=== PATIENT | male | born 1960 | race Caucasian/White ===

== ENCOUNTER 2021-11-24 07:34 | Outpatient (REF) | payer OTHER, SELFPAY ==
[2021-11-24 11:25] LABS: MANUAL DIFF FLAG NO
[2021-11-24 11:37] LABS: Basophils Percent Auto 0.5 % (0-2); Eosinophils Absolute Auto 0.2 X10*3/uL (0.0-0.4); Eosinophils Percent Auto 3.3 % (0-4); Hematocrit 49.4 % (42.0-52.0); Hemoglobin 16.6 g/dl (14.0-18.0); Imm Gran Abs Auto 0.02 X10*3/uL (0.00-0.03); Imm Gran Pct Auto 0.3 % (0.0-0.4); Lymphocytes Absolute Auto 1.1 X10*3/uL (1.2-4.9); Lymphocytes Percent Auto 18.3 % (20-40); Mean Corpuscular HGB Conc 33.6 g/dl (31.0-36.0); Mean Corpuscular Hemoglobin 30.7 pg (27.0-33.0); Mean Corpuscular Volume 91.5 fL (80.0-98.0); Mean Platelet Volume 10.8 fL (9.4-12.4); Monocytes Absolute Auto 0.8 X10*3/uL (0.1-1.2); Monocytes Percent Auto 13.5 % (2-11); Neutrophils Absolute Auto 3.9 x10*3/uL (2.0-8.3); Neutrophils Percent Auto 64.1 % (45-73); Platelet Count 245 X10*3/uL (160-400)
[2021-11-24 11:47] LABS: Appearance Urine HAZY; Color Urine YELLOW; Glucose Urine UA NEG (NEG); Leukocyte Esterase Urine NEG (NEG); Nitrite Urine NEG (NEG); Specific Gravity - Urine 1.025 (1.005-1.025); Urine Blood NEG (NEG); Urine Ketones NEG (NEG); Urine Protein NEG (NEG-TRACE)
[2021-11-24 11:49] LABS: Alanine Aminotransferase 37 U/L (0-40); Alkaline Phosphatase 77 U/L (39-117); Anion Gap 10 (12-20); Aspartate Amino Transferase 22 U/L (5-37); Bilirubin Total 0.5 mg/dL (0.0-1.0); Blood Urea Nitrogen 13 mg/dL (9-16); Calcium 9.3 mg/dL (8.4-10.2); Carbon Dioxide 28 mmol/L (22-29); Chloride 105 mmol/L (96-108); Cholesterol 238 mg/dL; Estimated Glomerular Filt Rate > 60; Glucose Fasting 113 mg/dL (60-99); HDL Cholesterol 45 mg/dL; LDL Cholesterol Calculated 176 mg/dl; Potassium 4.3 mmol/L (3.3-5.1); Sodium 139 mmol/L (135-145); Total Protein 6.6 g/dL (6.5-8.0); Triglycerides 85 mg/dL
[2021-11-24 12:52] LABS: Prostate Specific Antigen 5.92 ng/mL (<0.05-4.0)
== END 2021-11-24 07:35 | disposition home or self-care (01) ==
LOC: HO.HMGCLDS 07:34
PROVIDERS: Visit Provider Family Medicine
DX: Z12.5 Encounter for screening for malignant neoplasm of prostate (principal); R00.0 Tachycardia, unspecified; R53.83 Other fatigue; R30.0 Dysuria; Z82.49 Family history of ischemic heart disease and other diseases of the circulatory system
CPT/HCPCS: 36415; 80053; 80061; 81003; 84153; 85025

== ENCOUNTER 2022-02-06 08:41 | Outpatient (REF) | payer OTHER, SELFPAY ==
[2022-02-06 12:20] LABS: Alanine Aminotransferase 34 U/L (0-40)
== END 2022-02-06 08:42 | disposition home or self-care (01) ==
LOC: HO.HMGCLDS 08:41
PROVIDERS: PCP Family Medicine; Visit Provider Family Medicine
DX: E78.00 Pure hypercholesterolemia, unspecified (principal); Z79.899 Other long term (current) drug therapy
CPT/HCPCS: 36415; 82550; 84460

== ENCOUNTER → 2022-05-12 14:18 | Outpatient (BNVA) | payer SELFPAY | PROVIDERS: PCP Family Medicine; Visit Provider Urology | DX: N52.9 Male erectile dysfunction, unspecified (principal); N40.0 Benign prostatic hyperplasia without lower urinary tract symptoms; R97.20 Elevated prostate specific antigen [PSA] | CPT/HCPCS: 99202 ==

== ENCOUNTER 2022-07-07 07:07 | Outpatient (REF) | payer OTHER, SELFPAY ==
[2022-07-07 11:56] LABS: Cholesterol 203 mg/dL; Glucose Fasting 99 mg/dL (60-99); HDL Cholesterol 53 mg/dL; LDL Cholesterol Calculated 117 mg/dl; Triglycerides 168 mg/dL
[2022-07-07 12:20] LABS: Estimated Average Glucose 94 mg/dL; Hemoglobin A1C 150.9672 umol/L; Hemoglobin A1c % 4.9 %
== END 2022-07-07 07:08 | disposition home or self-care (01) ==
LOC: HO.HMGCLDS 07:07
PROVIDERS: Absent Provider Urology; PCP Family Medicine; Visit Provider Family Medicine
DX: E78.00 Pure hypercholesterolemia, unspecified (principal); R73.9 Hyperglycemia, unspecified; Z79.899 Other long term (current) drug therapy
CPT/HCPCS: 36415; 80061; 82550; 82947; 83036

== ENCOUNTER 2022-10-27 06:51 | Outpatient (REF) | payer OTHER, SELFPAY ==
[2022-11-01 17:09] LABS: Testosterone, Free 89.3 pg/mL (35.0-155.0); Testosterone, Total 750 ng/dL (250-1100)
== END 2022-10-27 06:52 | disposition home or self-care (01) ==
LOC: HO.HMGCLDS 06:51
PROVIDERS: PCP Family Medicine; Visit Provider Urology
DX: N52.9 Male erectile dysfunction, unspecified (principal)
CPT/HCPCS: 36415; 84402; 84403

== ENCOUNTER → 2022-11-10 10:31 | Outpatient (BNVA) | payer OTHER, SELFPAY | PROVIDERS: PCP Family Medicine; Visit Provider Urology | DX: Z13.89 Encounter for screening for other disorder (principal) ==

== ENCOUNTER 2022-11-17 08:43 | Outpatient (REF) | payer OTHER, SELFPAY ==
--- NOTE | ~2022-11-17 | US_ITS ---
EXAMINATION: US PELVIS LIMITED (BLADDER) CLINICAL INFORMATION: Poor urinary stream. COMPARISON: None available. TECHNIQUE: Real-time imaging of the bladder. FINDINGS: BLADDER: Well distended and normal. Bilateral ureteral jets are demonstrated. Prevoid bladder volume is 345 mL. Postvoid bladder volume is 42 mL. ADDITIONAL FINDINGS: The prostate is enlarged. US/US bladder IMPRESSION: 1. Small postvoid residual bladder volume. 2. Normal bilateral ureteral jets seen. 3. Moderate prostate enlargement.
[2022-11-17 12:13] LABS: PSA,Total (Free>4and<10) 8.81 ng/mL (0.00-4.00)
[2022-11-19 09:59] LABS: Free Prostate Spec Ag 1.4 ng/mL; Percent Free Prostate Spec Ag 17 % (calc) (>25); Prostate Specific Ag Total 8.4 ng/mL (< OR = 4.0)
== END 2022-11-17 08:44 | disposition home or self-care (01) ==
LOC: HO.HMGCX 08:43
PROVIDERS: PCP Family Medicine; Visit Provider Urology
DX: Z12.5 Encounter for screening for malignant neoplasm of prostate (principal); N40.0 Benign prostatic hyperplasia without lower urinary tract symptoms; R39.12 Poor urinary stream; E11.69 Type 2 diabetes mellitus with other specified complication; N52.1 Erectile dysfunction due to diseases classified elsewhere; R97.20 Elevated prostate specific antigen [PSA]
CPT/HCPCS: 36415; 76857; 84153; 84154

== ENCOUNTER → 2022-12-02 08:42 | Outpatient (BNVA) | payer OTHER, SELFPAY | PROVIDERS: PCP Family Medicine; Referring Provider Family Medicine; Visit Provider Surgery | DX: K64.8 Other hemorrhoids (principal); K64.9 Unspecified hemorrhoids | CPT/HCPCS: 46600 ==

== ENCOUNTER → 2022-12-15 13:44 | Outpatient (BNVA) | payer OTHER, SELFPAY | PROVIDERS: PCP Family Medicine; Visit Provider Urology | DX: N32.0 Bladder-neck obstruction (principal); R97.20 Elevated prostate specific antigen [PSA] | CPT/HCPCS: 52000 ==

== ENCOUNTER 2023-01-26 06:00 | Day surgery (SDC) | payer OTHER, SELFPAY ==
[2023-01-22 11:33] VITALS: BMI 29.1
--- NOTE | 2023-01-25 09:58 | HO.ANESPROP2 ---
Documented by User: Sindy Page NP 01/25/23 09:58 HPI - Anesthesia Eval Consult details Narrative: 62yo M for EUA,Hemorrhoidectomy [facility] Active Problems Active Problems: All Active Problems (Updated 01/22/23 @ 11:10 by Suzanne Genao RN) Elevated PSA (Acute) Bladder outlet obstruction (Acute) Internal and external bleeding hemorrhoids (Acute) BPH (benign prostatic hyperplasia) (Acute) Erectile dysfunction (Acute) Past Medical History Medical History (Updated 01/22/23 @ 11:10 by Suzanne Genao RN) BPH (benign prostatic hyperplasia) Elevated cholesterol Erectile dysfunction Internal and external bleeding hemorrhoids Family History Family History Mother Breast cancer Paternal Uncle Prostate cancer Social History Social History Alcohol intake: never Patient Tobacco Use Status: Never used Tobacco Are you DNR?: No Advance Directives: No Advance Directives Information Provided: Yes Meds Allergies Allergy/AdvReac Type Severity Reaction Status Date / Time No Known Allergies Allergy Verified 12/15/22 14:06 Home Medications Medication Instructions Recorded Confirmed Last Taken Type atorvastatin 10 mg tablet 10 mg PO BEDTIME 05/11/22 01/22/23 Unknown History sildenafil 50 mg tablet 50 mg PO DAILY 05/11/22 12/02/22 Unknown History Exam Exam Date and Time: January 25, 2023 0958 Height,Weight and Vital Signs: Height 5 ft 9 in Weight 89.358 kg Assessment and Plan Assessment Anesthesia Assessment: Chart Reviewed Documented by User: Fuentes Osborne MD 01/26/23 07:50 [facility] Past Medical History Medical History (Updated 01/22/23 @ 11:10 by Suzanne Genao RN) BPH (benign prostatic hyperplasia) Elevated cholesterol Erectile dysfunction Internal and external bleeding hemorrhoids Family History Family History Mother Breast cancer Paternal Uncle Prostate cancer Family history of problems with anesthesia: No Surgical History History of Problems with Anesthesia: No Social History Social History Alcohol intake: never Patient Tobacco Use Status: Never used Tobacco Are you DNR?: No Advance Directives: No Advance Directives Information Provided: Yes Meds Allergies Allergy/AdvReac Type Severity Reaction Status Date / Time No Known Allergies Allergy Verified 12/15/22 14:06 Home Medications Medication Instructions Recorded Confirmed Last Taken Type atorvastatin 10 mg tablet 10 mg PO BEDTIME 05/11/22 01/22/23 Unknown History sildenafil 50 mg tablet 50 mg PO DAILY 05/11/22 12/02/22 Unknown History Exam Airway Mallampati Class: I TM Dist: >3cm Neck ROM: Full Loose/Missing/Broken Teeth: No Heart: ok Lungs: ok Assessment and Plan Final Anesthetic Review Family History of Problems with Anesthesia: No History of Problems with Anesthesia: No NPO: Yes ASA Class: II Final Preanesthetic Review: No Changes in Pt Med Stat, Meds/Allgs Chart Reviewed, Consent Obtained/Reviewed and Anes Risks/Benef Reviewed Patient Risk: Low Procedure Risk: Intermediate Anesthetic Plan Anesthetic Plan: GA and Agree w/ Assess. and Plan Disposition: Standard PACU
[2023-01-26 06:03] VITALS: BP 118/68; PULSE 62; RESP 20; TEMP 36.3; O2SAT 97
[2023-01-26] MEDS: Lactated Ringers 1,000 ML 100 ML IVCONT (06:29)
--- NOTE | 2023-01-26 07:24 | P.HPSUR_ITS ---
Pre-Procedural Eval Section A Date of Service: 01/26/23 Section B Chief Complaint: Residual hemorrhoidal skin tags,hemorrhoids, Details of Present Illness: Has had pain, bleeding and discomfort with his hemorrhoids for man Relevant Family History (Specify if Yes): No Relevant Social History: None Present Medications: see Short Stay Collaborative assessment Medical History: Significant History ( elevated PSA, BPH) History of Previous Operations: No relevant previous surgery Allergies: Allergies Allergy/AdvReac Type Severity Reaction Status Date / Time No Known Allergies Allergy Verified 12/15/22 14:06 Review of Systems Sugical H&P ROS: Negative: Constitution, Cardiovascular, Respiratory, Neurological, Psychiatric, Hem-Onc, Allergic/Immunologic, Gastrointestinal, Genitourinary, Musculoskeletal, Integumentary, Endocrine and Ey es/Ears/Nose/Throat Exam Surgical H&P Exam: Normal: HEENT, Normal: Heart, Normal: Lungs, Normal: Extremities, Normal: Abdomen, Normal: Skin and Normal: Neurological Plan Diagnosis/Plan: Unchanged I have reviewed the history and physical and performed a pertinent physical examination on my patient. No changes have occurred unless specified. Time Spent With Patient Time: Total time managing care of this patient today ____ minutes.
--- NOTE | 2023-01-26 08:01 | W.PM.OPN ---
Operative Note Operative Note Date of Service: 01/26/23 Narrative: Postop diagnosis: Bleeding internal external hemorrhoids Postop diagnosis: The same Procedure: Exam under anesthesia, hemorrhoidectomy x2 columns Surgeon: Marshall Chau MD The patient is a 62-year-old male, who has had significant pain and bleeding with his hemorrhoids. He wanted to proceed with hemorrhoidectomy. He understood the technique of the procedure. He was aware of the risks, benefits, and alternatives He was brought to the operating room and placed in prone cherise-knife position under general anesthesia via endotracheal tube. The buttocks were retracted with wide tape laterally. The perianal area was prepped and draped in the usual sterile fashion. A surgical time-out was done. The patient received Cefotan 2 g IV preoperatively. The perianal area was infiltrated with lidocaine 1%.Examination of the anal orifice revealed a large external hemorrhoidal column on the right with a much smaller external hemorrhoid column on the left. I inserted the Celeste Marshall retractor and examined the anal canal circumferentially. Again these hemorrhoidal columns were seen a mix of both internal external. There were no other lesions seen. There was no fissure. There were smaller hemorrhoidal columns on the left as well. I applied a Poole grasper at the hemorrhoidal column on the right. I made a pmdgus-nn-mbtda stitch at this pedicle using a chromic 3-0. I made an incision around this hemorrhoidal column to the perianal skin using blade 15. I excised this hemorrhoidal column above the plane of the sphincters using scissors. I closed this incision with a running chromic 3-0 stitch with additional hemostatic sutures being placed for oozing areas. The hemorrhoidal column the left was retracted as well the with a Poole grasper. This was much smaller than the right side. I made a oemyhx-yc-nzqwn stitch at this pedicle. I made an incision around this hemorrhoidal column to the perianal skin and excise above the plane of the sphincters using scissors. I closed this incision with a running chromic 3-0 stitch. Additional figure of 8 hemostatic sutures were placed . Once hemostasis was confirmed, I proceeded to then infiltrate the perianal area with Marcaine 0.5% for postop analgesia. The procedure was then completed. The patient tolerated procedure well. There were no immediate complications. Initial and final counts of sponges and instruments were correct. Estimated blood loss was about 20 cc. The patient was extubated without difficulty and transferred to the recovery room with stable signs.
[2023-01-26 08:20] VITALS: BP 148/78; PULSE 59; RESP 16; TEMP 36.3; O2SAT 96
[2023-01-26 08:25] VITALS: BP 140/83; PULSE 56; RESP 16; O2SAT 96
[2023-01-26 08:30] VITALS: BP 135/73; PULSE 56; RESP 16; O2SAT 97
[2023-01-26 08:36] VITALS: BP 133/73; PULSE 57; RESP 16; O2SAT 97
[2023-01-26] MEDS: oxyCODONE HCl Immed Release 5 MG TABLET 10 MG PO (08:48)
[2023-01-26] MEDS: Acetaminophen 325 MG TABLET 650 MG PO (08:48)
[2023-01-26 08:51] VITALS: BP 117/75; PULSE 57; RESP 16; TEMP 36.3; O2SAT 97
== END 2023-01-26 09:17 | disposition home or self-care (01) ==
PROVIDERS: PCP Family Medicine; Visit Provider Surgery
PROC: (CPT 46260; principal; 2023-01-26 07:30)
DX: K64.8 Other hemorrhoids (principal); K64.4 Residual hemorrhoidal skin tags; N40.0 Benign prostatic hyperplasia without lower urinary tract symptoms; N52.9 Male erectile dysfunction, unspecified; E78.00 Pure hypercholesterolemia, unspecified; Z79.899 Other long term (current) drug therapy
CPT/HCPCS: 46260; 88304; J1885; J2405; J2795; J3010

== ENCOUNTER → 2023-01-26 06:00 | Outpatient (BNV) | payer OTHER, SELFPAY | PROVIDERS: PCP Family Medicine; Visit Provider Surgery | DX: K64.9 Unspecified hemorrhoids (principal) | CPT/HCPCS: 46946 ==

== ENCOUNTER 2023-02-10 08:54 | Outpatient (AMB) | payer OTHER, SELFPAY ==
--- NOTE | 2023-02-10 09:04 | MHC.OFFVIS ---
Intake Vital Signs 02/10/23 09:11 Weight 196 lb BP 137/74 Blood Pressure Location Rt brachial Position Standing Pulse 87 Intake Visit Reasons: S/P hemorrhoidectomy Intake Note: This patient presents for a post-op follow-up assessment status post hemorrhoidectomy. Patient c/o; rectal itching after bowel movements, yesterday had minimal bleeding when wiped, pt thinks it might of been due to excessive wiping. Aircraft Motor Mechanic Required: No Accompanied by: Self / Same As Patient Allergies No Known Allergies Allergy (Verified 02/10/23 09:13) HPI S/P hemorrhoidectomy HPI Details He had undergone hemorrhoidectomy x2 columns for bleeding hemorrhoids last 01/26/2023 and is here for postop visit. He says he had significant pain for the 1st 2 or 3 days but feels much better now. He says he has good bowel movements. He denies any problems with bleeding. [facility] Medical History BPH (benign prostatic hyperplasia) Elevated cholesterol Erectile dysfunction Internal and external bleeding hemorrhoids Surgical History History of hemorrhoidectomy Family History Mother Breast cancer Paternal Uncle Prostate cancer Social History Alcohol intake: never Patient Tobacco Use Status: Never used Tobacco Review of Systems Const Denies chills and Denies fever(s) Card Denies chest pain GI Denies abdominal pain and Denies hematochezia Physical Exam Vital Signs: Last Vital Signs Pulse 87 02/10/23 09:11 BP 137/74 02/10/23 09:11 Const General: comfortable and no acute distress Resp Effort & Inspection: normal respiratory effort GI Other: Rectal exam - hemorrhoidectomy sites are well healed, not infected, no discharge, no induration no redness Palpation (GI): Soft to palpation and not firm Assessment & Plan Assessment & Plan (1) Internal and external bleeding hemorrhoids: Code(s): K64.4 - Residual hemorrhoidal skin tags; K64.8 - Other hemorrhoids Plan: Status post hemorrhoidectomy. He is doing very well postoperatively. His hemorrhoidectomy sites are healing well. He has good bowel movements and states that he is happy with the outcome. I had advised him to avoid any straining and constipation. I told him to start using fiber supplements like Metamucil if he does have this problem. He can follow up with me on a p.r.n. basis. Coding Level of Care Code Global (34734) Diagnoses Internal and external bleeding hemorrhoids K64.4; K64.8
[2023-02-10 09:11] VITALS: BP 137/74; PULSE 87
== END 2023-02-10 09:19 | disposition home or self-care (01) ==
PROVIDERS: PCP Family Medicine; Visit Provider Surgery
DX: K64.4 Residual hemorrhoidal skin tags (principal); K64.8 Other hemorrhoids
CPT/HCPCS: 99024

== ENCOUNTER → 2023-02-10 08:54 | Outpatient (BNVA) | payer OTHER, SELFPAY | PROVIDERS: PCP Family Medicine; Visit Provider Surgery ==

== ENCOUNTER 2023-02-22 06:01 | Day surgery (SDC) | payer OTHER, SELFPAY ==
--- NOTE | 2023-02-19 10:18 | P.CONAN_ITS ---
Documented by User: Sindy Page NP 02/19/23 10:18 HPI - Anesthesia Eval Consult details Narrative: 63yo M for Colonoscopy PMF[facility] Active Problems Active Problems: All Active Problems (Updated 01/22/23 @ 11:10 by Suzanne Genao, MARIA GUADALUPE) Elevated PSA (Acute) Bladder outlet obstruction (Acute) Internal and external bleeding hemorrhoids (Acute) BPH (benign prostatic hyperplasia) (Acute) Erectile dysfunction (Acute) Past Medical History Medical History BPH (benign prostatic hyperplasia) Elevated cholesterol Erectile dysfunction Internal and external bleeding hemorrhoids Family History Family History Mother Breast cancer Paternal Uncle Prostate cancer Family history of problems with anesthesia: No Surgical History Surgical History H/O eye surgery History of hemorrhoidectomy History of Problems with Anesthesia: No Social History Social History Alcohol intake: never Patient Tobacco Use Status: Never used Tobacco Are you DNR?: No Advance Directives: No Advance Directives Information Provided: Yes Nutrition Risks: No Nutritional Risk Meds Allergies Allergy/AdvReac Type Severity Reaction Status Date / Time No Known Allergies Allergy Verified 02/22/23 06:37 Home Medications Medication Instructions Recorded Confirmed Last Taken Type atorvastatin 10 mg tablet 10 mg PO BEDTIME 05/11/22 02/22/23 Unknown History sildenafil 50 mg tablet 50 mg PO DAILY 05/11/22 02/22/23 Unknown History Exam Exam Date and Time: February 19, 2023 1018 Assessment and Plan Assessment Anesthesia Assessment: Chart Reviewed Final Anesthetic Review Family History of Problems with Anesthesia: No History of Problems with Anesthesia: No Documented by User: Moinca Martinez MD 02/22/23 07:29 [facility] Past Medical History Medical History BPH (benign prostatic hyperplasia) Elevated cholesterol Erectile dysfunction Internal and external bleeding hemorrhoids Family History Family History Mother Breast cancer Paternal Uncle Prostate cancer Surgical History Surgical History H/O eye surgery History of hemorrhoidectomy Social History Social History Alcohol intake: never Patient Tobacco Use Status: Never used Tobacco Are you DNR?: No Advance Directives: No Advance Directives Information Provided: Yes Nutrition Risks: No Nutritional Risk Meds Allergies Allergy/AdvReac Type Severity Reaction Status Date / Time No Known Allergies Allergy Verified 02/22/23 06:37 Home Medications Medication Instructions Recorded Confirmed Last Taken Type atorvastatin 10 mg tablet 10 mg PO BEDTIME 05/11/22 02/22/23 Unknown History sildenafil 50 mg tablet 50 mg PO DAILY 05/11/22 02/22/23 Unknown History Exam Airway Mallampati Class: III TM Dist: >3cm Neck ROM: Full Loose/Missing/Broken Teeth: No Heart: RRR Lungs: CTA Assessment and Plan Assessment Anesthesia Assessment: Anesthesia Plan Discussed Final Anesthetic Review NPO: Yes ASA Class: II Final Preanesthetic Review: Meds/Allgs Chart Reviewed, Consent Obtained/Reviewed and Anes Risks/Benef Reviewed Patient Risk: Low Procedure Risk: Low Anesthetic Plan Anesthetic Plan: MAC: Disposition: Standard PACU
[2023-02-22 05:57] VITALS: BMI 29.5
[2023-02-22] MEDS: Lactated Ringers 1,000 ML 100 ML IVCONT (06:23)
[2023-02-22 06:31] VITALS: BP 147/75; PULSE 68; RESP 18; TEMP 36.6; O2SAT 96
[2023-02-22 08:35] VITALS: BP 116/65; PULSE 65; RESP 16; TEMP 36.1; O2SAT 97
--- NOTE | 2023-02-22 08:39 | PM.OP ---
Brief Operative Note Date of Service: 02/22/23 Pre-op diagnosis: Screening Post-op diagnosis: other (Colon polyps) Procedure: Colonoscopy to the cecum and TI with hot snare polypectomy x 1 of AC polyp, and biopsy/removal of polyps Surgeon: Joesph Harris Anesthesia: MAC Was an Proof Press Operator used for this Procedure?: No Estimated blood loss (mL): 2.0 Pathology: other (A. Proximal ascending colon polyp B. Polyps at 15cm) Condition: stable Disposition: PACU
[2023-02-22 08:50] VITALS: BP 108/64; PULSE 58; RESP 16; TEMP 36.2; O2SAT 97
--- NOTE | 2023-02-22 09:00 | OP_ITS ---
DATE OF SERVICE: 02/22/2023 SURGEON: Joesph Harris MD INDICATIONS: The patient presents for evaluation of colorectal cancer screening. Full consent obtained from him for this, including risks of bleeding and perforation. PREOPERATIVE DIAGNOSIS: Colorectal cancer screening. POSTOPERATIVE DIAGNOSIS: Colorectal cancer screening, colon polyps, sigmoid diverticulosis and small internal hemorrhoids. PROCEDURE PERFORMED: Colonoscopy to cecum and terminal ileum with hot snare polypectomy x 1, and biopsy removal of polyps. ESTIMATED BLOOD LOSS: COMPLICATIONS: ANESTHESIA: Monitored anesthesia care. ASSISTANTS: SPECIMENS: DESCRIPTION OF PROCEDURE: The patient was placed in the left lateral decubitus position. The digital rectal exam revealed no abnormalities. The Olympus video pediatric colonoscope was entered into the rectum and advanced easily to the cecum. Once in the cecum, I did identify normal-appearing cecal pouch with appendiceal orifice and a normal-appearing ileocecal valve. The terminal ileum was cannulated and appeared normal. The scope was withdrawn back in the colon. The entire cecum and ileocecal valve appeared normal. The scope was slowly withdrawn assessing all mucosal surfaces carefully. Preparation was excellent. In the proximal ascending colon was an approximately 12 mm grossly adenomatous polyp, which was removed by hot snare polypectomy. This was retrieved by recovering it on the tip of the scope and taking it out of the patient. The scope was readvanced back to the polypectomy site, which appeared clean, without any sign of residual polyp nor bleeding. The only other polyps I visualized were 2 probable hyperplastic polyps at 15 cm of approximately 4 mm in diameter each. These were both biopsied and completely removed with cold biopsy forceps and placed in the same container. I did not visualize any other polyps, colitis, nor angiodysplasia. There was a mild amount of sigmoid diverticulosis. In the rectum, scope was retroflexed visualizing small internal hemorrhoids, but no other pathology. The rectal mucosa appeared normal. Scope was straightened and withdrawn from the patient. He tolerated the procedure well and was returned to recovery area in stable condition. IMPRESSION: 1. Colon polyps. 2. Diverticulosis. 3. Internal hemorrhoids. PLAN: The results of the pathology will be checked. He was advised not to use any aspirin and NSAIDs for at least 1 week. I would recommend a repeat colonoscopy in 5 years assuming the larger polyp is a tubular adenoma. This has been discussed with his . MD MARTINEZ Cody/BALTAZAR / [id number] MARY
== END 2023-02-22 09:21 | disposition home or self-care (01) ==
PROVIDERS: PCP Family Medicine; Visit Provider Internal Medicine
PROC: 0DJD8ZZ Inspection of Lower Intestinal Tract, Via Natural or Artificial Opening Endoscopic (ICD-10-PCS; CPT 45378; principal; 2023-02-22 07:30)
DX: Z12.11 Encounter for screening for malignant neoplasm of colon (principal); D12.2 Benign neoplasm of ascending colon; K63.5 Polyp of colon; K57.30 Diverticulosis of large intestine without perforation or abscess without bleeding; K64.8 Other hemorrhoids; N40.0 Benign prostatic hyperplasia without lower urinary tract symptoms; Z79.899 Other long term (current) drug therapy
CPT/HCPCS: 45385; 45380; 88305

== ENCOUNTER 2023-03-23 09:22 | Outpatient (AMB) | payer OTHER, SELFPAY ==
--- NOTE | 2023-03-23 09:27 | MHC.OFFVIS ---
Intake Intake Visit Reasons: 3m follow up Intake Note: Patient is present for Telephone follow up Urology Med: Finasteride, Sildenafil, Tadalafil, Terazosin Antibiotic Allergy: None Blood Thinner:None Pharmacy: [facility] Allergies No Known Allergies Allergy (Verified 03/23/23 09:28) Medication List - Last Reconciled 03/23/23 by Jose Odonnell MD atorvastatin 10 mg PO BEDTIME docusate sodium (Colace) 100 mg PO BID finasteride 5 mg PO DAILY 90 days ibuprofen 600 mg PO Q6H PRN sildenafil 50 mg PO DAILY tadalafil 5 mg PO DAILY 90 days tadalafil 20 mg PO DAILY PRN terazosin 10 mg PO BEDTIME 90 days HPI HPI Comments History of Present Illness Details Jose is a pleasant male. He is a patient patient of Dr. Del Castillo. He is seen for the following urologic conditions - elevated PSA - erectile dysfunction - lower urinary tract symptoms Telemedicine Evaluation 15 min Consultation [employer] Magali Video attempted Good response to finasteride and terazosin 10mg Still poor response to tadalafil Discussed penile prosthetic, vacuum pump At this stage not interested in pursuing therapy 6 month follow-up PSA and PVR Elevated PSA PSA 03/21 1.1, 11/30 5.9, 12/01 8.4 17% T 750 No prior therapy Discussed risk of prostate cancer between 5-10% Offered prostate biopsy versus finasteride Erectile dysfunction Progressive - Current therapy daily tadalafil with on demand 20 mg Laboratory investigations - elevated lipid panel - recently started on atorvastatin 10 mg - elevated fasting glucose - 11/01 T 750 Lower urinary tract symptoms Mild urge and frequency Minimal nocturia SAMPSON 2+ soft US - prostate volume 90gm Cystoscopy 01/01 tight prostate PFSH Medical History Elevated cholesterol Internal and external bleeding hemorrhoids Erectile dysfunction BPH (benign prostatic hyperplasia) Surgical History H/O eye surgery History of hemorrhoidectomy Family History Mother Breast cancer Paternal Uncle Prostate cancer Social History Alcohol intake: never Patient Tobacco Use Status: Never used Tobacco Review of Systems Const All systems reviewed & are unremarkable except as noted in HPI and below Reports no additional complaints Resp Reports no additional complaints GI Reports no additional complaints Reports as per HPI Musc Reports no additional complaints Physical Exam Telemedicine evaluation Appropriate responses Regular breathing rate and rhythm HEENT Head: Yes normal to inspection Ears: hearing grossly normal bilaterally Eyes General: appearance normal, both eyes and all related structures Neck Neck: Yes normal visual inspection Chest Chest palpation & inspection: normal inspection of the chest Resp Effort & Inspection: normal respiratory effort and able to speak in complete sentences Assessment & Plan Assessment & Plan (1) BPH (benign prostatic hyperplasia): Code(s): N40.0 - Benign prostatic hyperplasia without lower urinary tract symptoms (2) Erectile dysfunction: Code(s): N52.9 - Male erectile dysfunction, unspecified (3) Elevated PSA: Code(s): R97.20 - Elevated prostate specific antigen [PSA] Plan 6 month follow-up Orders: Orders PSA,Total (Free>4and<10) 6 Months R97.20 - Elevated prostate specific antigen [PSA] Medications: Refilled finasteride 5 mg PO DAILY 90 days 90 tabs 1RF N32.0 - Bladder-neck obstruction, N40.0 - Benign prostatic hyperplasia without lower urinary tract symptoms Patient Instructions: Imaging studies, laboratory and physical exam results were discussed and reviewed in detail. No major barriers to patient understanding were identified. An opportunity to ask questions regarding the treatment plan was provided. All questions were answered. The patient expressed understanding and agreement with the above treatment plan. The patient is aware they should contact our office by phone for worsening of their current condition or the appearance of new urologic symptoms. Compliance is encouraged with any medications and followup testing that is ordered. It is a privilege to participate in the urologic care of your patient. If you have any questions or concerns regarding treatment for the above conditions, or other urologic issues, please do not hesitate to contact me. The office telephone contact is [phone]. This note is constructed using voice recognition software. While every effort has been made to ensure accuracy program associate errors may have been included. Yours sincerely, Dr Jose Odonnell MD, [facility] - Urology Providers of Expert, Compassionate Care for the Genitourinary System Telehealth Telehealth Location of provider rendering services: practice address Location of patient: address on file Patient Identification confirmed using: Name, : Yes Telehealth method: video Patient verbally consented to treatment: Yes Patient verbally consented to billing insurance company: Yes Patient informed of any privacy concerns related to visit: Yes Coding Level of Care Code Tele Est Pt Level 3 (71752) Diagnoses BPH (benign prostatic hyperplasia) N40.0 Erectile dysfunction N52.9 Elevated PSA R97.20
== END 2023-03-23 10:05 | disposition home or self-care (01) ==
LOC: HO.HUSH 09:22
PROVIDERS: PCP Family Medicine; Visit Provider Urology
DX: N40.0 Benign prostatic hyperplasia without lower urinary tract symptoms (principal); N52.9 Male erectile dysfunction, unspecified; R97.20 Elevated prostate specific antigen [PSA]
CPT/HCPCS: 99213

== ENCOUNTER → 2023-03-23 09:22 | Outpatient (BNVA) | payer OTHER, SELFPAY | PROVIDERS: PCP Family Medicine; Visit Provider Urology ==

== ENCOUNTER 2023-08-11 07:05 | Outpatient (REF) | payer OTHER, SELFPAY ==
[2023-08-11 11:54] LABS: Alanine Aminotransferase 41 U/L (0-40); Aspartate Amino Transferase 25 U/L (5-37)
== END 2023-08-11 07:06 | disposition home or self-care (01) ==
LOC: HO.HMGCLDS 07:05
PROVIDERS: PCP Family Medicine; Visit Provider Family Medicine
DX: E78.00 Pure hypercholesterolemia, unspecified (principal); Z79.899 Other long term (current) drug therapy
CPT/HCPCS: 36415; 82550; 84450; 84460

== ENCOUNTER 2023-09-14 07:49 | Outpatient (REF) | payer OTHER, SELFPAY ==
[2023-09-14 12:16] LABS: PSA,Total (Free>4and<10) 3.42 ng/mL (0.00-4.00)
== END 2023-09-14 07:50 | disposition home or self-care (01) ==
LOC: HO.HMGCLDS 07:49
PROVIDERS: PCP Family Medicine; Visit Provider Urology
DX: Z12.5 Encounter for screening for malignant neoplasm of prostate (principal); R97.20 Elevated prostate specific antigen [PSA]
CPT/HCPCS: 36415; 84153

== ENCOUNTER 2023-09-22 09:37 | Outpatient (AMB) | payer OTHER, SELFPAY ==
--- NOTE | 2023-09-22 09:46 | A.OFFVIS_ITS ---
Intake Intake Visit Reasons: 6m/PSA/PVR(set)Confirmed Intake Note: Patient presents today for a follow-up PSA/PVR Meds- Terazosin, Finasteride Allergies to Antibiotic- No Known Allergies Blood Thinner- None Post Void Residual: 44ml Paper Carrier Required: No Accompanied by: Self / Same As Patient Allergies No Known Allergies Allergy (Verified 09/22/23 09:55) HPI HPI Comments History of Present Illness Details Jose is a pleasant male. He is a patient patient of Dr. Del Castillo. He is seen for the following urologic conditions - elevated PSA - erectile dysfunction - lower urinary tract symptoms PSA fell on finasteride Good response to finasteride and terazosin 10mg Still poor response to tadalafil - did encouraged to retry daily therapy for at least 12-18 months Discussed penile prosthetic, vacuum pump At this stage not interested in pursuing therapy 6 month follow-up PSA Elevated PSA PSA 03/21 1.1, 11/30 5.9, 12/01 8.4 17% T 750, 10/02 3.4 No prior therapy Discussed risk of prostate cancer between 5-10% Offered prostate biopsy versus finasteride Erectile dysfunction Progressive - Current therapy daily tadalafil with o n demand 20 mg Laboratory investigations - elevated lipid panel - recently starte d on atorvastatin 10 mg - elevated fasting glucose - 11/01 T 750 Lower urinary tract symptoms Mild urge and frequency Minimal nocturia SAMPSON 2+ soft US - prostate volume 90gm Cystoscopy 01/01 tight prostate PFSH Medical History Elevated cholesterol Internal and external bleeding hemorrhoids Erectile dysfunction BPH (benign prostatic hyperplasia) Surgical History H/O eye surgery History of hemorrhoidectomy Family History Mother Breast cancer Paternal Uncle Prostate cancer Social History Alcohol intake: never Patient Tobacco Use Status: Never used Tobacco Review of Systems Const Denies chills and Denies fever(s) Card Reports no additional complaints and Denies syncope Resp Denies cough GI Denies abdominal pain and Denies heartburn Reports as per HPI and Denies change in libido Neuro Denies syncope Psych Denies change in libido Endo Denies change in libido Physical Exam Const General: cooperative, healthy appearing, comfortable and no acute distress Orientation/consciousness: patient oriented x3 HEENT Face and sinus: Yes normal facial exam Mouth: moist mucous membranes Neck Neck: Yes normal visual inspection, Yes full ROM and Yes trachea midline Chest Chest palpation & inspection: normal inspection of the chest Resp Effort & Inspection: normal respiratory effort, able to speak in complete sentences and no respiratory distress GI Inspection: Yes normal to inspection Back/Spine/Pelvis Cervical Spine: normal cervical lordosis Thoracic/Lumbar Spine: thoracic and lumbar spine normal to inspection Skin General skin exam: no rashes or lesions noted Neuro General: patient oriented x3, gait normal, tone normal and moves all extremities Extrem General: Yes normal to inspection and Yes capillary refill normal Office Procedures Post Void Residual Post Residual Void Post Void Residual (PVR): 44 05897-Utbr Void Residual by ultrasound Assessment & Plan Assessment & Plan (1) Elevated PSA: Code(s): R97.20 - Elevated prostate specific antigen [PSA] (2) Bladder outlet obstruction: Code(s): N32.0 - Bladder-neck obstruction Plan Six-month follow-up labs tele Orders: Orders AMB Post Void Residual by ultrasound Today R33.9 - Retention of urine, unspecified PSA,Total (Free>4and<10) 6 Months R97.20 - Elevated prostate specific antigen [PSA] Patient Instructions: Imaging studies, laboratory and physical exam results were discussed and reviewed in detail. No major barriers to patient understanding were identified. An opportunity to ask questions regarding the treatment plan was provided. All questions were answered. The patient expressed understanding and agreement with the above treatment plan. The patient is aware they should contact our office by phone for worsening of their current condition or the appearance of new urologic symptoms. Compliance is encouraged with any medications and followup testing that is ordered. It is a privilege to participate in the urologic care of your patient. If you have any questions or concerns regarding treatment for the above conditions, or other urologic issues, please do not hesitate to contact me. The office telephone contact is [phone]. This note is constructed using voice recognition software. While every effort has been made to ensure accuracy defensive secondary coach errors may have been included. Yours sincerely, Dr Jose Odonnell MD, [facility] - Urology Providers of Expert, Compassionate Care for the Genitourinary System Coding Level of Care Code Est Pt Level 3 (92393) Diagnoses Elevated PSA R97.20 Bladder outlet obstruction N32.0 CPT Codes Post Residual Void - PVR CPT Code: 30382-Uzao Void Residual by ultrasound ([id number])
== END 2023-09-22 10:13 | disposition home or self-care (01) ==
PROVIDERS: PCP Family Medicine; Visit Provider Urology
DX: R97.20 Elevated prostate specific antigen [PSA] (principal); N32.0 Bladder-neck obstruction
CPT/HCPCS: 99213

== ENCOUNTER → 2023-09-22 09:37 | Outpatient (BNVA) | payer OTHER, SELFPAY | PROVIDERS: PCP Family Medicine; Visit Provider Urology | DX: R97.20 Elevated prostate specific antigen [PSA] (principal); R33.9 Retention of urine, unspecified; N32.0 Bladder-neck obstruction; N52.9 Male erectile dysfunction, unspecified | CPT/HCPCS: 51798 ==

== ENCOUNTER 2024-01-26 06:41 | Outpatient (REF) | payer OTHER, SELFPAY ==
[2024-01-26 10:39] LABS: Alanine Aminotransferase 36 U/L (0-40); Aspartate Amino Transferase 30 U/L (5-37); Cholesterol 195 mg/dL (<200); Glucose Fasting 99 mg/dL (60-99); HDL Cholesterol 53 mg/dL (>40); LDL Cholesterol Calculated 126 mg/dL (<100); Triglycerides 80 mg/dL (<150)
[2024-01-26 12:27] LABS: Estimated Average Glucose 100 mg/dL; Hemoglobin A1c % 5.1 % (<6.0)
== END 2024-01-26 06:42 | disposition home or self-care (01) ==
LOC: HO.HMGCLDS 06:41
PROVIDERS: PCP Family Medicine; Visit Provider Family Medicine
DX: E78.00 Pure hypercholesterolemia, unspecified (principal); Z79.899 Other long term (current) drug therapy; Z83.3 Family history of diabetes mellitus
CPT/HCPCS: 36415; 80061; 82550; 82947; 83036; 84450; 84460

== ENCOUNTER 2024-03-14 07:10 | Outpatient (REF) | payer OTHER, SELFPAY ==
[2024-03-14 10:38] LABS: PSA,Total (Free>4and<10) 3.05 ng/mL (0.00-4.00)
== END 2024-03-14 07:11 | disposition home or self-care (01) ==
LOC: HO.HMGCLDS 07:10
PROVIDERS: PCP Family Medicine; Visit Provider Urology
DX: R97.20 Elevated prostate specific antigen [PSA] (principal); Z12.5 Encounter for screening for malignant neoplasm of prostate
CPT/HCPCS: 36415; 84153

== ENCOUNTER 2024-03-24 09:02 | Outpatient (AMB) | payer OTHER, SELFPAY ==
--- NOTE | 2024-03-24 08:59 | A.OFFVIS_ITS ---
Intake Visit Reasons: 6M Follow Up-PSA(set) Intake Note: Patient presents today for a follow-up PSA Meds- Terazosin, Finasteride, SILDENAFIL, TADALAFIL Allergies to Antibiotic- No Known Allergies Blood Thinner- None Post Void Residual: 44ml Social Sciences Chair Required: No Accompanied by: Self / Same As Patient Allergies No Known Allergies Allergy (Verified 03/24/24 09:01) Medication List - Last Reconciled 03/24/24 by Jose Odonnell MD atorvastatin 10 mg PO BEDTIME finasteride 5 mg PO DAILY 90 days terazosin 10 mg PO BEDTIME 90 days HPI Comments Details: Jose is a pleasant male. He is a patient patient of Dr. Del Castillo. He is seen for the following urologic conditions - elevated PSA - erectile dysfunction - lower urinary tract symptoms Telemedicine Evaluation 15 min Consultation [employer] Continued good response to finasteride and terazosin 10mg - PSA at lowest level since 2009 Still poor response to tadalafil - did encouraged to retry daily therapy for at least 12-18 months Discussed penile prosthetic, vacuum pump At this stage not interested in pursuing therapy 6 month follow-up PSA Elevated PSA PSA 03/21 1.1, 11/30 5.9, 12/01 8.4 17% T 750, 10/02 3.4, 04/04 3.1 No prior therapy Discussed risk of prostate cancer between 5-10% Offered prostate biopsy versus finasteride Erectile dysfunction Progressive - Current therapy daily tadalafil with on demand 20 mg Laboratory investigations - elevated lipid panel - recently started on atorvastatin 10 mg - elevated fasting glucose - 11/01 T 750 Lower urinary tract symptoms Mild urge and frequency Minimal nocturia SAMPSON 2+ soft US - prostate volume 90gm Cystoscopy 01/01 tight prostate PFSH Medical History Elevated cholesterol Internal and external bleeding hemorrhoids Erectile dysfunction BPH (benign prostatic hyperplasia) Surgical History H/O eye surgery History of hemorrhoidectomy Family History Mother Breast cancer Paternal Uncle Prostate cancer Social History Alcohol intake: never Patient Tobacco Use Status: Never used Tobacco Review of Systems Const All systems reviewed & are unremarkable except as noted in HPI and below Reports no additional complaints Resp Reports no additional complaints GI Reports no additional complaints Reports as per HPI Musc Reports no additional complaints Physical Exam Telemedicine evaluation Appropriate responses Regular breathing rate and rhythm HEENT Head: Yes normal to inspection Ears: hearing grossly normal bilaterally Eyes General: appearance normal, both eyes and all related structures Neck Neck: Yes normal visual inspection Chest Chest palpation & inspection: normal inspection of the chest Resp Effort & Inspection: normal respiratory effort and able to speak in complete sentences Telehealth Telehealth Telehealth Platform: [employer] Location of provider rendering services: practice address Location of patient: address on file Patient Identification confirmed using: Name, : Yes Telehealth method: video Patient verbally consented to treatment: Yes Patient verbally consented to billing insurance company: Yes Patient informed of any privacy concerns related to visit: Yes Minutes spent on Phone/Video with Pt.: 15 Assessment & Plan Assessment & Plan (1) Bladder outlet obstruction: Code(s): N32.0 - Bladder-neck obstruction Category: Medical (2) Elevated PSA: Code(s): R97.20 - Elevated prostate specific antigen [PSA] Category: Medical Plan Six-month follow-up PSA office PVR Orders: Orders PSA,Total (Free>4and<10) 6 Months R97.20 - Elevated prostate specific antigen [PSA] Medications: New tadalafil 10 mg PO DAILY 90 days 90 tabs 1RF sexual activity N52.9 - Male erectile dysfunction, unspecified Refilled finasteride 5 mg PO DAILY 90 days 90 tabs 1RF N32.0 - Bladder-neck obstruction, N40.0 - Benign prostatic hyperplasia without lower urinary tract symptoms Discontinued tadalafil administer approximately 30min before sexual activity; do not use more than 1 dose per 24hrs Discontinued Reason: Patient Completed Course 20 mg PO DAILY PRN 30 tabs 5RF sexual activity tadalafil Daily medications Discontinued Reason: Patient Completed Course 5 mg PO DAILY 90 days 90 tabs 1RF sexual activity N52.9 - Male erectile dysfunction, unspecified sildenafil administer 30 minutes to 4 hours before activity; see attached goodrx coupon as insurance will not cover medication Discontinued Reason: Patient Completed Course 100 mg PO ONCE PRN 75 tabs 0RF sexual activity Patient Instructions: Imaging studies, laboratory and physical exam results were discussed and reviewed in detail. No major barriers to patient understanding were identified. An opportunity to ask questions regarding the treatment plan was provided. All questions were answered. The patient expressed understanding and agreement with the above treatment plan. The patient is aware they should contact our office by phone for worsening of their current condition or the appearance of new urologic symptoms. Compliance is encouraged with any medications and followup testing that is ordered. It is a privilege to participate in the urologic care of your patient. If you have any questions or concerns regarding treatment for the above conditions, or other urologic issues, please do not hesitate to contact me. The office telephone contact is [phone]. This note is constructed using voice recognition software. While every effort has been made to ensure accuracy virtualization consultant errors may have been included. Yours sincerely, Dr Jose Odonnell MD, [facility] - Urology Providers of Expert, Compassionate Care for the Genitourinary System Coding Level of Care Code Tele Est Pt Level 3 (31079) Diagnoses Bladder outlet obstruction N32.0 Elevated PSA R97.20
== END 2024-03-24 09:45 | disposition home or self-care (01) ==
LOC: HO.HUSH 09:02
PROVIDERS: PCP Family Medicine; Visit Provider Urology
DX: N32.0 Bladder-neck obstruction (principal); R97.20 Elevated prostate specific antigen [PSA]
CPT/HCPCS: 99213

== ENCOUNTER → 2024-03-24 09:02 | Outpatient (BNVA) | payer OTHER, SELFPAY | PROVIDERS: PCP Family Medicine; Visit Provider Urology ==

== ENCOUNTER 2024-04-05 07:02 | Outpatient (REF) | payer OTHER, SELFPAY | END 2024-04-05 07:03 | disposition home or self-care (01) | LOC: HO.HMGCLDS 07:02 | PROVIDERS: PCP Family Medicine; Visit Provider Family Medicine | DX: E78.00 Pure hypercholesterolemia, unspecified (principal); Z79.899 Other long term (current) drug therapy; R74.8 Abnormal levels of other serum enzymes | CPT/HCPCS: 36415; 82550 ==

== ENCOUNTER 2024-04-19 09:56 | Outpatient (AMB) | payer OTHER, SELFPAY ==
--- NOTE | 2024-04-19 09:59 | A.OFFVIS_ITS ---
Vital Signs 04/19/24 10:02 Height 5 ft 9 in Weight 196 lb BMI 28.9 Intake Visit Reasons: painful hemorrhoids Intake Note: This patient presents for painful hemorrhoids. Pt c/o; reports painful hemorrhoids. Wardrobe Consultant Required: No Accompanied by: Self / Same As Patient Allergies No Known Allergies Allergy (Verified 04/19/24 10:13) Medication List - Last Reconciled 04/19/24 by Marshall Chau MD atorvastatin 10 mg PO BEDTIME finasteride 5 mg PO DAILY 90 days tadalafil 10 mg PO DAILY 90 days terazosin 10 mg PO BEDTIME 90 days HPI HPI painful hemorrhoids: Details: He is here for follow-up because of severe pruritus a night. He said he has had this for several months now. He had hemorrhoidectomy last year and he says his pruritus started after that He says that he scratches his perianal area a lot because of the severe itching. He said he has been on Calmoseptine which she does not feel has helped enough. He denies any significant pain. [facility] Medical History (Updated 04/19/24 @ 10:23 by Marshall Chau MD) Pruritus ani Elevated cholesterol Internal and external bleeding hemorrhoids Erectile dysfunction BPH (benign prostatic hyperplasia) Surgical History H/O eye surgery History of hemorrhoidectomy Family History Mother Breast cancer Paternal Uncle Prostate cancer Social History Alcohol intake: never Patient Tobacco Use Status: Never used Tobacco Review of Systems Const Denies chills and Denies fever(s) Card Denies chest pain, Denies dyspnea and Denies dyspnea on exertion Resp Denies cough, Denies dyspnea and Denies dyspnea on exertion GI Denies hematochezia and Denies change in bowel habits Denies hematuria and Denies difficulty urinating Musc Denies back pain and Denies limited range of motion Neuro Denies focal weakness and Denies convulsions Psych Denies depression and Denies mood swings Physical Exam Vital Signs: BMI result Body Mass Index 28.9 Const General: comfortable and no acute distress Orientation/consciousness: patient oriented x3 Neck Neck: Yes no lymphadenopathy Resp Auscultation: clear to auscultation bilaterally Cardio Rhythm: regular rhythm GI Other: Rectal exam shows some dermatitic skin changes on the perianal skin consistent with frequent irritation, no open ulcers or lesions Palpation (GI): Soft to palpation, nontender and no guarding Neuro General: patient oriented x3 Assessment & Plan Assessment & Plan (1) Pruritus ani: Code(s): L29.0 - Pruritus ani Category: Medical Plan: He describes severe pruritus ani and he says that Calmoseptine does not help. I am going to bring him back to do a biopsy of the perianal skin. I explained this procedure to him. We will do this in the office under local anesthesia on his next visit. He understands the plan. Coding Level of Care Code Est Pt Level 2 (81121) Diagnoses Pruritus ani L29.0
[2024-04-19 10:02] VITALS: BMI 28.9
== END 2024-04-19 10:28 | disposition home or self-care (01) ==
PROVIDERS: PCP Family Medicine; Visit Provider Surgery
DX: L29.0 Pruritus ani (principal)
CPT/HCPCS: 99212

== ENCOUNTER → 2024-04-19 09:56 | Outpatient (BNVA) | payer OTHER, SELFPAY | PROVIDERS: PCP Family Medicine; Visit Provider Surgery ==

== ENCOUNTER 2024-05-10 09:07 | Outpatient (AMB) | payer OTHER, SELFPAY ==
--- NOTE | 2024-05-10 09:09 | MHC.OFFVIS ---
Intake Visit Reasons: biopsy of the perianal skin Intake Note: Office procedure: biopsy of the perianal skin Overhead Cleaner Maintainer Required: No Accompanied by: Other Relationship Allergies No Known Allergies Allergy (Verified 05/10/24 09:12) Medication List - Last Reconciled 05/10/24 by Marshall Chau MD atorvastatin 10 mg PO BEDTIME finasteride 5 mg PO DAILY 90 days tadalafil 10 mg PO DAILY 90 days terazosin 10 mg PO BEDTIME 90 days HPI HPI biopsy of the perianal skin: Details: He is here for follow-up for his anal pruritus. I had actually schedule him for a biopsy of the perianal skin today. However, he says he has noted significant improvement the past few weeks. He says he no longer have frequent flare ups. He says he feels much better and he does not have much itching anymore. He says he would like to hold off on the biopsy if I agree. [facility] Medical History Pruritus ani Elevated cholesterol Internal and external bleeding hemorrhoids Erectile dysfunction BPH (benign prostatic hyperplasia) Surgical History H/O eye surgery History of hemorrhoidectomy Family History Mother Breast cancer Paternal Uncle Prostate cancer Social History Alcohol intake: never Patient Tobacco Use Status: Never used Tobacco Review of Systems Const Denies chills and Denies fever(s) Card Denies chest pain Resp Denies cough GI Denies hematochezia Physical Exam Const General: comfortable and no acute distress Resp Effort & Inspection: normal respiratory effort Cardio Rate: regular rate GI Other: Rectal exam does not show any lesions in the perianal skin; some mild dermatitic changes noted with no induration, fissure or skin breakdown Assessment & Plan Assessment & Plan (1) Pruritus ani: Code(s): L29.0 - Pruritus ani Category: Medical Plan: He says that his symptoms have improved significantly. He feels that his flare ups have decreased and are much less intense. He would like to hold off on the perianal biopsy. I feel that this is reasonable. I did tell him that if he wants to proceed down the line, he is welcome to come back to the office. He says he is feeling well overall. Coding Level of Care Code Est Pt Level 2 (82458) Diagnoses Pruritus ani L29.0
== END 2024-05-10 09:33 | disposition home or self-care (01) ==
LOC: HO.HGS 09:08
PROVIDERS: PCP Family Medicine; Visit Provider Surgery
DX: L29.0 Pruritus ani (principal)
CPT/HCPCS: 99212

== ENCOUNTER → 2024-05-10 09:07 | Outpatient (BNVA) | payer OTHER, SELFPAY | PROVIDERS: PCP Family Medicine; Visit Provider Surgery | DX: L29.0 Pruritus ani (principal) ==

== ENCOUNTER 2024-09-19 07:31 | Outpatient (REF) | payer OTHER, SELFPAY ==
--- OUTSIDE RECORDS SUMMARY | 2024-09-19 07:34 | XMS_ITS | Patient Health Record ---
Author Organization [facility] Address [address] [place] [address] Care Team Providers Care Application Tester Name Role Phone Abundio JACQUES, Craig Primary Care Provider Joesph Vaz Unavailable [phone] Allergies No Known Allergies Reason For Referral No Information Medications Medication SIG (Take, Route, Frequency, Duration) Notes Start Date End Date Status Tadalafil 20 MG TAKE 1 TABLET BY MACKENZIE TH DAILY NEEDED FOR SEXUAL ACTIVITY. ADMINISTER APPROXIMATELY 30 MINUTES BEFORE SEXUAL ACTIVITY. NO MORE THAN 1 DOSE Oral for 30 Active Atorvastatin Calcium 10 MG TAKE 1 TABLET BY MOUTH AT BEDTIME Oral for 90 Active Finasteride 5 MG TAKE 1 TABLET BY MACKENZIE TH DAILY Diagnosis Unavailable Oral for 90 Active Social History Tobacco Use: Social History Observation Description Date Details (start date - stop date) Never Smoker NA - NA Tobacco Use/Smoking Question Answer Notes Patient is a nonsmoker Alcohol Screen Question Answer Notes Did you have a drink contain ing alcohol in the past year? Yes How often did you have a dri nk containing alcohol in the past year? 2 to 3 times a week (3 points) How many drinks did you have on a typical day when you were drinking in the past year? 5 or 6 drinks (2 points) How often did you have 6 or more drinks on one occasion in the past year? Never (0 point) Points 5 Interpretation Positive Section Notes: Nonsmoker; no sig alcohol Problems Problem Type SNOMED Code ICD Code Onset Dates Problem Status W/U Status Risk Notes Problem 289031223 Colon cancer screening (Z12.11) Active confirmed Problem [id number] Preprocedural examination (Z01.818) Active confirmed Problem Diverticulosis of colon (858285420) Diverticulosis of colon (K57.30) Active confirmed Plan Of Treatment Future Test Test Name Order Date COLONOSCOPY 11/24/2022 Insurance Providers Payer Name Payer Address Payer Phone Subscriber Number Group Number Insured Name Patient Relationship to Insured Coverage Start Date Coverage End Date [facility] [address] [place] [phone] [id number] [employer] Self - patient is the insured Medical (General) History Medical History History ICD Code Denies [place],DM,CVA,Lung disease,renal dise ase BPH Hemorrhoids-seeing Dr. Chau Surgical History Surgery Date(Month/Year) Left eye as a child
[2024-09-19 11:01] LABS: PSA,Total (Free>4and<10) 3.07 ng/mL (0.00-4.00)
== END 2024-09-19 07:32 | disposition home or self-care (01) ==
LOC: HO.HMGCLDS 07:31
PROVIDERS: PCP Family Medicine; Visit Provider Urology
DX: Z12.5 Encounter for screening for malignant neoplasm of prostate (principal); R97.20 Elevated prostate specific antigen [PSA]
CPT/HCPCS: 36415; 84153

== ENCOUNTER 2024-10-03 11:21 | Outpatient (AMB) | payer OTHER, SELFPAY ==
--- NOTE | 2024-10-03 11:28 | A.OFFVIS_ITS ---
Intake Visit Reasons: 6m/PSA/PVR Intake Note: Patient is present for 6M/PSA/PVR Urology Medication:TERAZOSIN,FINASTERIDE,TADALAFIL Antibiotic Allergy:NONE Blood Thinner:NONE Last PVR:44ML'S Todays PVR:65ML'S Engagement Director Required: No Allergies No Known Allergies Allergy (Verified 10/03/24 11:29) HPI Comments Details: Jose is a pleasant male. He is a patient patient of Dr. Del Castillo. He is seen for the following urologic conditions - elevated PSA - erectile dysfunction - lower urinary tract symptoms Six-month follow-up Continued good response to finasteride and terazosin 10mg - PSA at lowest level since 2009 Still poor response to tadalafil - did encouraged to retry daily therapy for at least 12-18 months Discussed penile prosthetic, vacuum pump At this stage not interested in pursuing therapy Twelve month follow-up PSA and PVR Elevated PSA PSA 03/21 1.1, 11/30 5.9, 12/01 8.4 17% T 750, 10/02 3.4, 04/04 3.1, 10/03 3 No prior therapy Discussed risk of prostate cancer between 5-10% Offered prostate biopsy versus finasteride Erectile dysfunction Progressive - Current therapy daily tadalafil with on demand 20 mg Laboratory investigations - elevated lipid panel - recently started on atorvastatin 10 mg - elevated fasting glucose - 11/01 T 750 Lower urinary tract symptoms Mild urge and frequency Minimal nocturia SAMPSON 2+ soft US - prostate volume 90gm Cystoscopy 01/01 tight prostate PFSH Medical History Pruritus ani Elevated cholesterol Internal and external bleeding hemorrhoids Erectile dysfunction BPH (benign prostatic hyperplasia) Surgical History H/O eye surgery History of hemorrhoidectomy Family History Mother Breast cancer Paternal Uncle Prostate cancer Social History Alcohol intake: never Patient Tobacco Use Status: Never used Tobacco Review of Systems Const Denies chills and Denies fever(s) Card Reports no additional complaints and Denies syncope Resp Denies cough GI Denies abdominal pain and Denies heartburn Reports as per HPI and Denies change in libido Neuro Denies syncope Psych Denies change in libido Endo Denies change in libido Physical Exam Const General: cooperative, healthy appearing, comfortable and no acute distress Orientation/consciousness: patient oriented x3 HEENT Face and sinus: Yes normal facial exam Mouth: moist mucous membranes Neck Neck: Yes normal visual inspection, Yes full ROM and Yes trachea midline Chest Chest palpation & inspection: normal inspection of the chest Resp Effort & Inspection: normal respiratory effort, able to speak in complete sentences and no respiratory distress GI Inspection: Yes normal to inspection Back/Spine/Pelvis Cervical Spine: normal cervical lordosis Thoracic/Lumbar Spine: thoracic and lumbar spine normal to inspection Skin General skin exam: no rashes or lesions noted Neuro General: patient oriented x3, gait normal, tone normal and moves all extremities Extrem General: Yes normal to inspection and Yes capillary refill normal Office Procedures Post Void Residual Post Residual Void Post Void Residual (PVR): 65 40862-Hifw Void Residual by ultrasound Results AMB Urinalysis, Automated UA Leukoctes 0 Monica/uL Last Edit by MATEO Baker on 10/03/24 11:46 UA Nitrite Negative Last Edit by MATEO Baker on 10/03/24 11:46 UA Urobilinogen 3.5 mg/dL Last Edit by MATEO Baker on 10/03/24 11:4 6 UA Protein 15 mg/dL Last Edit by MATEO Baker on 10/03/24 11:46 UA pH 6.0 Last Edit by MATEO Baker on 10/03/24 11:46 UA Blood 0 Leonel/uL Last Edit by MATEO Baker on 10/03/24 11:46 UA Specific [place] 1.025 Last Edit by MATEO Baker on 10/03/24 11: 46 UA Ketone Negative Last Edit by MATEO Baker on 10/03/24 11:46 UA Bilirubin 0 mg/dL Last Edit by MATEO Baker on 10/03/24 11:46 UA Glucose 0 mg/dL Last Edit by MATEO Baker on 10/03/24 11:46 Results Reviewed Results Reviewed: Laboratory Last Values Urine pH (Auto) 6.0 10/03/24 11:46 Specific [place] (Auto) 1.025 10/03/24 11:46 Urine Protein (Auto) 15 mg/dL 10/03/24 11:46 Glucose (UA)(Auto) 0 mg/dL 10/03/24 11:46 Urine Ketones (Auto) Negative 10/03/24 11:46 Urine Blood (Auto) 0 Leonel/uL 10/03/24 11:46 Urine Nitrite (Auto) Negative 10/03/24 11:46 Urine Bilirubin (Auto) 0 mg/dL 10/03/24 11:46 Urine Urobilinogen (Auto) 3.5 mg/dL 10/03/24 11:46 Leukocyte Esterase (Auto) 0 Monica/uL 10/03/24 11:46 Assessment & Plan Assessment & Plan (1) BPH (benign prostatic hyperplasia): Code(s): N40.0 - Benign prostatic hyperplasia without lower urinary tract symptoms Category: Medical (2) Erectile dysfunction: Code(s): N52.9 - Male erectile dysfunction, unspecified Category: Medical Plan Twelve month follow-up PSA and PVR Orders: Orders AMB Urinalysis Automated Today Z13.9 - Encounter for screening, unspecified Prostate Specific Antigen 364 Days R97.20 - Elevated prostate specific antigen [PSA] Patient Instructions: This note is constructed using voice recognition software. While every effort has been made to ensure accuracy rental representative errors may have been included. Imaging studies, laboratory and physical exam results were discussed and reviewed in detail. No major barriers to patient understanding were identified. An opportunity to ask questions regarding the treatment plan was provided. All questions were answered. The patient expressed understanding and agreement with the above treatment plan. The patient is aware they should contact our office by phone for worsening of their current condition or the appearance of new urologic symptoms. Compliance is encouraged with any medications and followup testing that is ordered. It is a privilege to participate in the urologic care of your patient. If you have any questions or concerns regarding treatment for the above conditions, or other urologic issues, please do not hesitate to contact me. The office telephone contact is [phone]. Sincerely, Dr Jose Odonnell MD, [facility] - Urology Compassionate Specialist Care for the Genitourinary System Coding Level of Care Code Est Pt Level 3 (51910) Diagnoses BPH (benign prostatic hyperplasia) N40.0 Erectile dysfunction N52.9 CPT Codes Post Residual Void - PVR CPT Code: 81458-Wxsl Void Residual by ultrasound ([id number])
--- OUTSIDE RECORDS SUMMARY | 2024-10-03 14:07 | XMS_ITS | Patient Health Record ---
Author Organization [facility] Address [address] [place] [address] Care Team Providers Care Strap Machine Operator Name Role Phone Abundio JACQUES, Craig Primary Care Provider Joeshp Vaz Unavailable [phone] Allergies No Known Allergies Reason For Referral [...] Problem Status W/U Status Risk Notes Problem [id number] Colon cancer screening (Z12.11) Active confirmed Problem [id number] Preprocedural examination (Z01.818) Active confirmed Problem Diverticulosis of colon (859726599) Diverticulosis of colon (K57.30) Active confirmed Plan Of Treatment Future Test Test Name Order Date COLONOSCOPY 11/24/2022 Insurance Providers Payer Name Payer Address Payer Phone Subscriber Number Group Number Insured Name Patient Relationship to Insured Coverage Start Date Coverage End Date [facility] [address] [place] [address] [phone] [id number] [employer] Self - patient is the insured Medical (General) History Medical History History ICD Code Denies GA,DM,CVA,Lung disease,renal dise ase BPH Hemorrhoids-seeing Dr. Chau Surgical History Surgery Date(Month/Year) Left eye as a child
== END 2024-10-03 12:16 | disposition home or self-care (01) ==
LOC: HO.HUSH 11:21
PROVIDERS: PCP Family Medicine; Visit Provider Urology
DX: N40.0 Benign prostatic hyperplasia without lower urinary tract symptoms (principal); N52.9 Male erectile dysfunction, unspecified; Z13.9 Encounter for screening, unspecified
CPT/HCPCS: 99213

== ENCOUNTER → 2024-10-03 11:21 | Outpatient (BNVA) | payer OTHER, SELFPAY | PROVIDERS: PCP Family Medicine; Visit Provider Urology | DX: N40.0 Benign prostatic hyperplasia without lower urinary tract symptoms (principal); N52.9 Male erectile dysfunction, unspecified; R35.1 Nocturia; R97.20 Elevated prostate specific antigen [PSA] | CPT/HCPCS: 51798; 81003 ==

== ENCOUNTER 2024-12-25 07:17 | Outpatient (REF) | payer OTHER, SELFPAY ==
--- OUTSIDE RECORDS SUMMARY | 2024-12-25 07:20 | XMS_ITS | Patient Health Record ---
[facility] Address [address] [place] [address] Care Team Providers Care Water Pump Installer Name Role Phone Marshall Flores MD Primary Care Provider Xavier Mcfarlane Unavailable [phone] Reason For Referral No Information Social History Tobacco Use: Social History Observation Description Date Details (start date - stop date) Never Smoker NA - NA Tobacco Use/Smoking Question Answer Notes Are you a: nonsmoker Additional Findings: Tobacco Non-User Current no n-smoker Alcohol Screen Question Answer Notes Did you have a drink containing alcohol in the p ast year? Yes Points 0 Interpretation Negative Problems Problem Type SNOMED Code ICD Code Onset Dates Problem Status W/U Status Risk Notes Problem Plantar wart (80970166) Plantar wart (B07.0) Active confirmed Plan Of Treatment Pending Test Test Name Order Date 99070-Hclx Destruction, 1-14 01/19/2017 Insurance Providers Payer Name Payer Address Payer Phone Subscriber Number Group Number Insured Name Patient Relationship to Insured Coverage Start Date Coverage End Date [employer] [address] [place] [address] [id number] Jose Salcedo Self - patient is the insured Medical (General) History Medical History History ICD Code Measles Mumps Chicken pox
[2024-12-25 10:50] LABS: Alanine Aminotransferase 54 U/L (0-40); Aspartate Amino Transferase 42 U/L (5-37); Estimated Glomerular Filt Rate > 60; Glucose Fasting 99 mg/dL (60-99)
== END 2024-12-25 07:18 | disposition home or self-care (01) ==
LOC: HO.HMGCLDS 07:17
PROVIDERS: PCP Family Medicine; Visit Provider Family Medicine
DX: E78.00 Pure hypercholesterolemia, unspecified (principal); Z83.3 Family history of diabetes mellitus
CPT/HCPCS: 36415; 82550; 82565; 82947; 84450; 84460

== ENCOUNTER 2025-06-19 09:14 | Outpatient (AMB) | payer OTHER, SELFPAY ==
--- NOTE | 2025-06-19 09:18 | A.OFFPC_ITS ---
Vital Signs 06/19/25 09:22 Height 5 ft 9 in Weight 96.275 kg BMI 31.3 BP 126/68 Respiration 14 Pulse 65 Pulse Source Pulse Oximeter Temp 97.3 F Temp Source Temporal Artery Scan Pulse Oximetry (%) 99 Oxygen Delivery Method Room Air Intake Visit Reasons: 6 MO F/UP - NE - see comments Coordinator Of Rehabilitation Services Required: No Accompanied by: Self / Same As Patient Allergies No Known Allergies Allergy (Verified 06/19/25 09:21) Medication List - Last Reconciled 06/19/25 by PATRICIA Kemp atorvastatin 10 mg PO BEDTIME finasteride 5 mg PO DAILY 90 days tadalafil 10 mg PO DAILY 90 days terazosin 10 mg PO BEDTIME 90 days Tobacco use date assessed: 06/19/25 Dental Screening Dental Screen Date: 06/19/25 Did you have a dental visit in the last 12 months?: Yes Did you have a dental problem in the last 6 months where you did not have access to dental care?: No Was dental information given to patient?: Patient has dentist HPI HPI Comments History of Present Illness Details 65-year-old male with history of hyperli pidemia, BPH, elevated ULTRA SOUND TECHNICIAN, erectile dysfunction, elevated liver enzymes, obesity presenting to the office today for management of chronic conditions and to establish care. He is a former patient of Dr. Del Castillo, last seen about 6 months ago. Hyperlipidemia-overdue for lipid panel, LDL 01/2024 was 126. On atorvastatin 10 mg daily Elevated liver enzymes -AST 42, ALT 54. Suspect fatty liver, rather than effects of atorvastatin as level would be significantly higher most likely BPH/elevated ULTRA SOUND TECHNICIAN/erectile dysfunction-following with Dr. Odonnell with close monitoring of PSA. He is on finasteride 5 mg daily, tadalafil 10 mg daily, terazosin 10 mg nightly. Obesity- BMI 31.3. Exercises with calisthenics-75 sit-ups a day and 24 pushups daily. He is also walking 20-30 minutes daily though endorses though endorses he could increase intensity 75 sit ups a day, 24 push ups. Walks 20- 30 Concerns: None Health maintenance: Last screening colonoscopy 02/2023 with 5 year follow-up due to tubular adenoma. Dr. Harris PSA being followed by Urology ROS: General: No fevers, malaise, unintentional weight loss HEENT: No blurred vision, diplopia. No sore throat, nasal congestion, rhinorrhea, sinus pain, ear pain Cardiovascular: No chest pain, palpitations, or leg edema Respiratory: No shortness of breath, wheezing, cough GI: No abdominal pain, nausea, vomiting, diarrhea, constipation, melena, hematochezia : No dysuria, hematuria, increased urinary frequency, decreased urinary output MSK: No myalgia, back pain Neuro: No headaches, weakness, paresthesias Skin: No rashes or lesions EXAM: Constitutional - Awake and Alert, No apparent distress Eyes - PERRL Cardiovascular - S1S2, RRR, No edema Respiratory - Normal lung expansion, Normal respiratory effort, No respiratory distress, CTA bilaterally Extremities - no calf tenderness bilaterally, no swelling Skin - Warm/Dry Neurological - Alert & oriented x3 Psychological - Appropriate affect [facility] Medical History Pruritus ani Elevated cholesterol Internal and external bleeding hemorrhoids Erectile dysfunction BPH (benign prostatic hyperplasia) Surgical History History of colonoscopy (~02/22/23) H/O eye surgery History of hemorrhoidectomy Family History Mother Breast cancer Paternal Uncle Prostate cancer Social History Housing: House Alcohol intake: never Patient Tobacco Use Status: Never used Tobacco e-Cigarette/Vaping Use: Never Used service: No Current occupational status: retired Cognitive needs: No Hearing needs: No Vision needs: Yes (Rx glasses) Questionnaire PHQ-9 Over the last 2 weeks, how often have you been bothered by any of the following problems? 1. Little interest or pleasure in doing things: not at all 2. Feeling down, depressed, or hopeless: not at all 3. Trouble falling or staying asleep, or sleeping too much: not at all 4. Feeling tired or having little energy: not at all 5. Poor appetite or overeating: not at all 6. Feeling bad about yourself - or that you are a failure or have let yourself or your family down: not at all 7. Trouble concentrating on things, such as reading the newspaper or watching television: not at all 8. Moving or speaking so slowly that other people could have noticed. Or the opposite - being so fidgety or restless that you have been moving around a lot more than usual: not at all 9. Thoughts that you would be better off or of hurting yourself in some way: not at all Total score: 0 Depression Screening Interpretation: Negative Depression Screening Done: Yes 82271 - PHQ-9 Billing: Yes Source: Developed by Drs. Joesph Roach, Liza Christiansen, Hank Bangura and colleagues, with an educational brad from [employer]. Thrive Questionnaire Date Thrive assessed: 06/19/25 I am a: Patient What is your living situation today?: I have a steady place to live Within the past 12 months, did the food you bought not last and you didn't have the money to get more?: Never true Within the past 12 months, did you worry whether your food would run out before you got money to buy more?: Never true Do you have trouble paying for medicines?: No Do you have trouble getting transportation to medical appointments?: No Do you have trouble paying your heating and electricity bill?: No Do you have trouble taking care of your child, family member or friend?: No Do you have trouble with day-to-day activities such as bathing, preparing meals, shopping, managing finances, etc.?: No Are you currently unemployed and looking for a job?: No Are you interested in more education?: No Please select the resources that you would like help with: None THRIVE Score: 0 AUDIT C Alcohol Use Questionnaire (AUDIT-C) 2. How many drinks containing alcohol do you have on a typical day when you are drinking?: 1 or 2 3. How often do you have six or more drinks on one occasion?: Monthly Total Score: 2 HERMINIA-7 AMB Questionnaire HERMINIA-7 Date HERMINIA - 7 assessed: 06/19/25 Feeling nervous, anxious, or on edge: 0 = Not at all Not being able to stop or control worryin = Not at all Worrying too much about different things: 0 = Not at all Trouble relaxin = Not at all Being so restless that it is hard to sit still: 0 = Not at all Becoming easily annoyed or irritable: 0 = Not at all Feeling afraid as if something awful might happen: 0 = Not at all Total HERMINIA-7 score (0-4 normal; 5-9 mild; 10-14 moderate; 15-21 severe): 0 Source: Developed by Drs. Joesph Roach, Liza Christiansen, Hank Bangura and colleagues, with an educational brad from [email or web address]. Physical exam (Primary Care) Vital Signs: Last Vital Signs Temp 97.3 F 06/19/25 09:22 Pulse 65 06/19/25 09:22 Resp 14 06/19/25 09:22 BP 126/68 06/19/25 09:22 Pulse Ox 99 06/19/25 09:22 Oxygen Delivery Method Room Air 06/19/25 09:22 BMI result Body Mass Index 31.3 Tobacco/Smoking Status: Tobacco use Status Tobacco use date assessed 06/19/25 06/19/25 09:24 Patient Tobacco Use Status Never used Tobacco 06/19/25 09:20 e-Cigarette/Vaping Use Never Used 06/19/25 09:24 PHQ-9: PHQ-9 Score PHQ-9: Total score 0 06/19/25 09:32 Depression Screening Interpretation: Negative Thrive Assessment: Date of Thrive Assessment Date Thrive assessed 06/19/25 06/19/25 09:32 Coding Level of Care Code New Pt Level 4 (63031) Complex visit Add On G2211 Diagnoses HLD (hyperlipidemia) E78.5 Elevated liver enzymes R74.8 BPH (benign prostatic hyperplasia) N40.0 Obesity E66.9 Additional Codes PHQ-9 - 01860 - PHQ-9 Billing: Yes ([id number]) Assessment & Plan Assessment & Plan (1) HLD (hyperlipidemia): Code(s): E78.5 - Hyperlipidemia, unspecified Category: Medical Plan: Lipid panel ordered, overdue. Continue atorvastatin 10 mg nightly, dose to be adjusted pending results of studies. Diet low in saturated fats and highly processed foods. (2) Elevated liver enzymes: Code(s): R74.8 - Abnormal levels of other serum enzymes Category: Medical Plan: Suspect fatty liver. Recheck liver enzymes. Consider right upper quadrant ultrasound if continues to be elevated (3) BPH (benign prostatic hyperplasia): Code(s): N40.0 - Benign prostatic hyperplasia without lower urinary tract symptoms Category: Medical Plan: Reviewed last urology note. Close monitoring of PSA. Continue finasteride, tadalafil, terazosin as prescribed (4) Obesity: Code(s): E66.9 - Obesity, unspecified Category: Medical Plan: Weight loss efforts discussed. BMI 31.3. Discussed monitoring caloric intake to create deficit. Continue with healthy diet limiting saturated fats, highly processed foods, sugar/carbohydrates. Discussed additional calisthenics can be done at home and advised to continue with these daily. Recommend increasing intensity of walks Plan Follow-up in the office in 1 year for annual physical exam pending normal lab results. If there is significant abnormality, will adjust timeframe as a ppropriate. Additional labs ordered to be perform several days prior to next visit Orders: Orders Lipid Panel Today E66.9 - Obesity, unspecified, E78.5 - Hyperlipidemia, unspecified, R74.8 - Abnormal levels of other serum enzymes Liver Panel Today E66.9 - Obesity, unspecified, E78.5 - Hyperlipidemia, unspecified, R74.8 - Abnormal levels of other serum enzymes Basic Metabolic Panel 6 Months E66.9 - Obesity, unspecified, E78.5 - Hyper lipidemia, unspecified, R74.8 - Abnormal levels of other serum enzymes Liver Panel 6 Months E66.9 - Obesity, unspecified, E78.5 - Hyperlipidemia, unspecified, R74.8 - Abnormal levels of other serum enzymes TSH reflex Free T4 Today E66.9 - Obesity, unspecified LDL Cholesterol Direct Today E78.5 - Hyperlipidemia, unspecified Basic Metabolic Panel Today E66.9 - Obesity, unspecified, E78.5 - Hyperlipidemia, unspecified, R74.8 - Abnormal levels of other serum enzymes Hemoglobin A1c Today E66.9 - Obesity, unspecified, E78.5 - Hyperlipidemia, unspecified, R74.8 - Abnormal levels of other serum enzymes Lipid Panel 6 Months E66.9 - Obesity, unspecified, E78.5 - Hyperlipidemia, unspecified, R74.8 - Abnormal levels of other serum enzymes
[2025-06-19 09:22] VITALS: BP 126/68; PULSE 65; RESP 14; TEMP 36.3; O2SAT 99; BMI 31.3
== END 2025-06-19 12:13 | disposition home or self-care (01) ==
LOC: HO.HMCHD 09:14
PROVIDERS: PCP Family Medicine; Visit Provider Physician Assistant
DX: E78.5 Hyperlipidemia, unspecified (principal); R74.8 Abnormal levels of other serum enzymes; N40.0 Benign prostatic hyperplasia without lower urinary tract symptoms; E66.9 Obesity, unspecified

== ENCOUNTER 2025-06-19 10:03 | Outpatient (REF) | payer OTHER, SELFPAY ==
[2025-06-19 13:38] LABS: Alanine Aminotransferase 53 U/L (0-40); Albumin Level 4.5 g/dL (3.5-5.0); Alkaline Phosphatase 83 U/L (39-117); Anion Gap 9 (12-20); Aspartate Amino Transferase 37 U/L (5-37); Blood Urea Nitrogen 19 mg/dL (9-16); Calcium 9.5 mg/dL (8.4-10.2); Carbon Dioxide 29 mmol/L (22-29); Chloride 105 mmol/L (96-108); Cholesterol 190 mg/dL (<200); Estimated Glomerular Filt Rate > 60; HDL Cholesterol 48 mg/dL (>40); Potassium 4.3 mmol/L (3.3-5.1); Sodium 139 mmol/L (135-145); Total Protein 7.0 g/dL (6.5-8.0); Triglycerides 95 mg/dL (<150)
== END 2025-06-19 10:04 | disposition home or self-care (01) ==
LOC: HO.10HDL 10:03
PROVIDERS: Visit Provider Physician Assistant
DX: R74.8 Abnormal levels of other serum enzymes (principal); E78.5 Hyperlipidemia, unspecified; E66.9 Obesity, unspecified; N40.0 Benign prostatic hyperplasia without lower urinary tract symptoms; Z68.31 Body mass index [BMI] 31.0-31.9, adult; Z79.899 Other long term (current) drug therapy
CPT/HCPCS: 36415; 80048; 80061; 80076; 83036; 83721; 84443; 96127